=== PATIENT | male | born 1995 | race Caucasian/White ===

== ENCOUNTER 2017-09-12 11:20 | Emergency (ER) | payer OTHER ==
[~2017-09-12] VITALS: Ht 185.4 cm; Wt 108.0 kg
--- NOTE | 2017-09-12 11:52 | ER Report ---
History and Physical Time Seen By MD: 11:35 Hx. of Stated Complaint: DROPPED LARGE PROJECTOR ON LEFT GREATER TOE. HPI/ROS CHIEF COMPLAINT: Left great toe injury HISTORY OF PRESENT ILLNESS: Patient is a 22-year-old male who presents to ED with complaint of left great toe injury that occurred 2 hours ago. He states that he dropped a metal projector onto his toe. He states that he did know some bleeding afterwards. He did bandage the area. He states that his toes painful right over the nail area. He has not taken anything for the pain. He has not applied ice. He states that this did happen at work. REVIEW OF SYSTEMS: Respiratory: No cough, no dyspnea. Cardiovascular: No chest pain, no palpitations. Gastrointestinal: No vomiting, no abdominal pain. Musculoskeletal: See history of present illness. Allergies: Coded Allergies: No Known Drug Allergies (Unverified , 09/12/17) Home Meds No Active Prescriptions or Reported Meds Reviewed Nurses Notes: Yes Old Medical Records Reviewed: Yes Constitutional Vital Sign - Last 24 Hours 09/12/17 11:39 Temp 98.3 Pulse 103 Resp 19 B/P (MAP) 156/93 Pulse Ox 95 O2 Delivery Room Air Physical Exam General Appearance: The patient is alert, has no immediate need for airway protection and no current signs of toxicity. Patient appears to be no acute distress. Respiratory: Chest is non tender, lungs are clear to auscultation. Cardiac: regular rate and rhythm Musculoskeletal: Neck: Neck is supple and non tender. There is a small subungual hematoma noted of the left great toenail. There is pain with palpation of the left great toenail. There is no laceration appreciated. No appreciable swelling or ecchymosis. PT and DP pulses are 2+ with normal capillary refill. Normal sensation. Full range of motion of the left great toe with minimal pain. Skin: See above exam. Medical Decision Making EKG/Imaging Imaging Left Great Toe Xrays: Distal phalanx fx noted ED Course/Re-evaluation ED Course Will obtain left great toe x-rays. 09/12/2017 12:41:39 pm - x-ray results with patient. He appears to have a distal phalanx slashed his fracture. Will place him in a surgical shoe. Given referral to orthopedics/podiatry. Will place a bandage on the area as well. Decision to Disposition Date: Sep 12, 2017 Decision to Disposition Time: 12:42 Depart Departure Latest Vital Signs Vital Signs Date Time Temp Pulse Resp B/P (MAP) Pulse Ox O2 Delivery O2 Flow Rate FiO2 09/12/17 11:39 98.3 103 19 156/93 95 Room Air Impression: Primary Impression: Fracture of left great toe Condition: Improved Disposition: HOME OR SELF-CARE [facility] New Scripts No Active Prescriptions or Reported Meds Patient Instructions: Toe Fracture (ED) Additional Instructions: Rest, ice, elevate. May take Tylenol or ibuprofen for pain relief. Follow-up with primary care/orthopedics/podiatry in 2-3 days. If having any worsening or concerning symptoms may return the Emergency Department. Problem Qualifiers Primary Impression: Fracture of left great toe Encounter type: initial encounter Fracture type: closed Phalanx: distal Fracture alignment: displaced Qualified Codes: S92.422A - Displaced fracture of distal phalanx of left great toe, initial encounter for closed fracture ELIZA YADAV PA-C Sep 12, 2017 11:52
--- NOTE | 2017-09-12 12:38 | RADIOLOGY IMAGING REPORT ---
FACILITY: [facility] PATIENT NAME: Jaime Gallegos : 1995 MR: [id number] V: [id number] EXAM DATE: ORDERING PHYSICIAN: ELIZA YADAV TECHNOLOGIST: Location: [facility] [place] Patient: Jaime Gallegos : 1995 Visit/Account:[id number] Date of Sevice: 09/12/2017 EXAMINATION: Left toe radiographs 3 views HISTORY: Dropped projector onto toe, pain COMPARISON: None. FINDINGS: 3 views obtained. Bones: Slightly displaced acute fracture involving the distal most aspect of the great toe distal ph alanx. Joint spaces: Normal. Alignment: Normal. Soft tissues: Normal. IMPRESSION: Slightly displaced acute fracture involving the distal most aspect of the great toe distal phalanx. Report Dictated By: Yair Taylor MD at 09/12/2017 12:33 PM Report E-Signed By: Yair Taylor MD at 09/12/2017 12:34 PM WSN:[id number]
[2017-09-12 12:50] VITALS: BP 140/100
== END 2017-09-12 12:52 | disposition home or self-care (01) ==
LOC: ER 11:21
DX: S92.422A Displaced fracture of distal phalanx of left great toe, initial encounter for closed fracture (principal); W20.8XXA Other cause of strike by thrown, projected or falling object, initial encounter; Y99.0 Civilian activity done for income or pay
CPT/HCPCS: 73660; 99283; L3260